=== PATIENT | male | born 2000 | race Caucasian/White ===

== ENCOUNTER 2022-01-22 18:30 | Observation (INO) ==
--- NOTE | 2022-01-22 18:38 | Emergency Department Note ---
Impression & Plan Pneumomediastinum, Chest pain ED Provider Note NAME: INEZ BARTON AGE: 21 SEX: M : 2000 ARRIVES VIA: Ambulance INFORMANT: Patient, ED PROVIDER(S): Lloyd Gudino MD Chief Complaint: Shortness of breath HPI: Patient presents due to concern for shortness of breath which occurred 2 days prior. Patient states that he was at the [employer] a basketball game and had been screaming during most of the basketball game and since then he was having some shortness of breath primarily with taking a big deep breath. Patient denies any nausea vomiting recent alcohol tobacco or drug use. The patient states he does drink alcohol occasionally but not in the last 2 days. Patient denies any coughing or sneezing fits. The patient denies any known medical history. The patient was diagnosed with mono 4 weeks ago and had been on a course of amoxicillin. Patient is still taking the amoxicillin. The patient has been taking ibuprofen and Tylenol which mildly improved his symptoms. The patient denies abdominal pain nausea vomiting. [facility] was noted to have some crepitus and was referred here for further evaluation treatment. Patient is a [employer] student. No recent travel and the patient denies any leg or calf pain. No history of DVT or PE no recent known sick contacts ROS: See HPI for pertinent positives and negatives. A total of 10 systems were reviewed and otherwise negative. Past medical history: See below Surgical history: See below Social history: See below Physical Exam: GENERAL: NAD, wearing a mask, non-toxic. Hoarse voice. EYE EXAM: Normal conjunctiva. PERRL, no anisocoria and EOM's grossly intact w/o pain. NECK: Supple, no nuchal rigidity, no adenopathy, non-tender. No signs of meningismus. FROM of the neck with good chin to chest and neck extension. No stridor. LUNGS: Clear to auscultation. Normal chest wall mechanics. HEART: NSR, no MRG. ABDOMEN: Abdomen soft, non-tender, normo-active bowel sounds, no masses, no rebound or guarding. BACK: No CVA TTP. SKIN: Crepitus over the bilateral chest bilateral neck and right-sided head. UPPER EXTREMITIES: Upper extremities are grossly normal. LOWER EXTREMITIES: Grossly normal, no edema. Negative Homans' sign bilaterally NEURO EXAM: A&O x3, cranial nerves II-XII grossly intact, normal speech, moves all 4 extremities. Differential diagnoses: Reactive airway disease, pneumonia, pneumothorax, COPD, CHF, infections, cardiac ischemia, pulmonary embolism, musculoskeletal, gastrointestinal, as well as other pathologies. Course: Patient was seen and evaluated the bedside. Full history physical exam was performed. Imaging Studies: See Below Cardiac monitoring: An order was placed for continuous cardiac monitoring. The monitor shows a rate of 67 with sinus rhythm. MDM: Patient was seen due to concern for shortness of breath as well as crepitus. The patient did have blood work completed was given IV fluids made n.p.o. COVID swab obtained. CT of the chest obtained along with CT soft tissue neck and CT head. Patient's blood work shows a normal white count with virtually normal hemoglobin at 13.9. The patient's platelet count is unremarkable with normal kidney function. Troponin is not elevated. COVID-negative. The patient's chest x-ray does show pneumomediastinum. There is also subcutaneous emphysema. No obvious pneumothorax. Patient's head CT shows subcutaneous emphysema. Patient's soft tissue neck CT similarly shows subcutaneous emphysema as well as pneumomediastinum. On the patient's CTA of the chest no evidence of PE but there is extensive pneumomediastinum. Patient is otherwise well-appearing at the bedside. I did speak with on-call pulmonology Dr. Meier who recommended chest x-ray as needed and in 1 week after discharge for resolution and recommended antitussives. He is agreeable that the patient would benefit from observation at this time. Past Med/Surg History Medical History (Updated 01/23/22 @ 00:21 by Lloyd Gudino MD) No pertinent past medical history Surgical History (Updated 01/23/22 @ 00:20 by Lloyd Gudino MD) No pertinent past surgical history Social History (Updated 01/23/22 @ 00:20 by Lloyd Gudino MD) Smoking Status: Never smoker Hx Alcohol Use: Yes Hx Substance Use: No current occupational status: student Feels Safe at Home: Yes Allergies Allergies Allergy/AdvReac Type Severity Reaction Status Date / Time No Known Allergies Allergy Verified 01/22/22 20:50 Home Meds Home Medications Medication Instructions Recorded Confirmed amoxicillin 500 mg tablet 0 mg PO BID 01/22/22 01/22/22 Results & Data (ED) Vital Signs Vital Signs - 24 hr 01/22/22 18:43 01/22/22 18:51 01/22/22 18:40 Pulse Rate 63 62 61 Pulse Rate [Finger] Pulse Rate from SpO2 Sensor 60 Pulse Rhythm Regular Regular Pulse Rhythm [Finger] Pulse Strength Normal Pulse Strength [Finger] Respiratory Rate 19 19 15 Respiratory Effort / Characteristics Non-Labored Respiratory Depth Shallow Respiratory Pattern Regular Blood Pressure 147/86 H Blood Pressure [Left Arm] Blood Pressure Mean 106 Blood Pressure Mean [Left Arm] Pulse Oximetry 98 98 98 Oxygen Delivery Method Room Air Room Air Sepsis Recent Fever Within 48 Hours No Sepsis New/Unexplained Change in Mental Status No Sepsis Action Taken by Nursing No Action Required 01/22/22 18:50 01/22/22 19:00 01/22/22 19:10 Pulse Rate 56 L 59 L 52 L Pulse Rate [Finger] Pulse Rate from SpO2 Sensor 57 L 61 53 L Pulse Rhythm Pulse Rhythm [Finger] Pulse Strength Pulse Strength [Finger] Respiratory Rate 21 17 20 Respiratory Effort / Characteristics Respiratory Depth Respiratory Pattern Blood Pressure Blood Pressure [Left Arm] Blood Pressure Mean Blood Pressure Mean [Left Arm] Pulse Oximetry 99 99 99 Oxygen Delivery Method Sepsis Recent Fever Within 48 Hours Sepsis New/Unexplained Change in Mental Status Sepsis Action Taken by Nursing 01/22/22 19:20 01/22/22 19:30 01/22/22 19:40 Pulse Rate 57 L 58 L 58 L Pulse Rate [Finger] Pulse Rate from SpO2 Sensor 56 L 56 L 52 L Pulse Rhythm Pulse Rhythm [Finger] Pulse Strength Pulse Strength [Finger] Respiratory Rate 20 12 22 Respiratory Effort / Characteristics Respiratory Depth Respiratory Pattern Blood Pressure Blood Pressure [Left Arm] Blood Pressure Mean Blood Pressure Mean [Left Arm] Pulse Oximetry 96 100 95 Oxygen Delivery Method Sepsis Recent Fever Within 48 Hours Sepsis New/Unexplained Change in Mental Status Sepsis Action Taken by Nursing 01/22/22 19:50 01/22/22 20:00 01/22/22 21:20 Pulse Rate 55 L 67 63 Pulse Rate [Finger] Pulse Rate from SpO2 Sensor 54 L 51 L 58 L Pulse Rhythm Pulse Rhythm [Finger] Pulse Strength Pulse Strength [Finger] Respiratory Rate 18 17 18 Respiratory Effort / Characteristics Respiratory Depth Respiratory Pattern Blood Pressure Blood Pressure [Left Arm] Blood Pressure Mean Blood Pressure Mean [Left Arm] Pulse Oximetry 99 96 100 Oxygen Delivery Method Sepsis Recent Fever Within 48 Hours Sepsis New/Unexplained Change in Mental Status Sepsis Action Taken by Nursing 01/22/22 21:30 01/22/22 19:50 01/22/22 19:50 Pulse Rate 58 L Pulse Rate [Finger] Pulse Rate from SpO2 Sensor 55 L Pulse Rhythm Pulse Rhythm [Finger] Pulse Strength Pulse Strength [Finger] Respiratory Rate 20 Respiratory Effort / Characteristics Non-Labored Respiratory Depth Shallow Respiratory Pattern Regular Blood Pressure Blood Pressure [Left Arm] Blood Pressure Mean Blood Pressure Mean [Left Arm] Pulse Oximetry 98 98 Oxygen Delivery Method Room Air Room Air Sepsis Recent Fever Within 48 Hours Sepsis New/Unexplained Change in Mental Status Sepsis Action Taken by Nursing 01/22/22 19:50 01/22/22 21:45 01/22/22 22:00 Pulse Rate 52 L 56 L Pulse Rate [Finger] 68 Pulse Rate from SpO2 Sensor 52 L 54 L Pulse Rhythm Pulse Rhythm [Finger] Regular Pulse Strength Pulse Strength [Finger] Normal Respiratory Rate 18 19 18 Respiratory Effort / Characteristics Respiratory Depth Respiratory Pattern Blood Pressure Blood Pressure [Left Arm] 147/86 H Blood Pressure Mean Blood Pressure Mean [Left Arm] 106 Pulse Oximetry 98 99 98 Oxygen Delivery Method Room Air Sepsis Recent Fever Within 48 Hours Sepsis New/Unexplained Change in Mental Status Sepsis Action Taken by Nursing 01/22/22 22:15 Pulse Rate 55 L Pulse Rate [Finger] Pulse Rate from SpO2 Sensor 55 L Pulse Rhythm Pulse Rhythm [Finger] Pulse Strength Pulse Strength [Finger] Respiratory Rate 19 Respiratory Effort / Characteristics Respiratory Depth Respiratory Pattern Blood Pressure Blood Pressure [Left Arm] Blood Pressure Mean Blood Pressure Mean [Left Arm] Pulse Oximetry 98 Oxygen Delivery Method Sepsis Recent Fever Within 48 Hours Sepsis New/Unexplained Change in Mental Status Sepsis Action Taken by Alf Medications Current Medication List: was personally reviewed by me Laboratory Data Attestation: I reviewed the patient's lab results. Result diagrams: 01/22/22 18:49 01/22/22 18:49 Lab Results 01/22/22 01/22/22 01/22/22 Range/Units 18:49 18:49 19:06 WBC 10.62 (4.8-10.8) K/ul RBC 4.82 (4.63-6.08) M/uL Hgb 13.9 L (14.0-18.0) g/dl Hct 40.7 (40.1-51.0) % MCV 84.4 (80.0-100.0) fL MCH 28.8 (25.0-34.0) pg MCHC 34.2 (32.0-36.0) g/dL RDW Std Deviation 39.4 (36.4-46.3) fL RDW Coeff of Latia 12.9 (11.5-14.5) % Plt Count 320 (130-400) K/uL MPV 8.8 L (9.4-12.4) fL Immature Gran % (Auto) 2.4 % Neut % (Auto) 59.9 % Lymph % (Auto) 29.8 % Randolph % (Auto) 5.6 % Eos % (Auto) 1.8 % Baso % (Auto) 0.5 % Neut # (Auto) 6.35 (1.4-6.5) K/uL Lymph # (Auto) 3.17 (1.2-3.4) K/uL Randolph # (Auto) 0.60 (0.24-0.82) K/uL Eos # (Auto) 0.19 (0-0.50) K/uL Baso # (Auto) 0.05 (0-0.2) K/uL Immature Gran # (Auto) 0.26 H (0.00-0.02) K/uL Sodium 139 (136-145) mmol/L Potassium 4.0 (3.5-5.1) mmol/L Chloride 103 (98-107) mmol/L Carbon Dioxide 30 (21-32) mmol/L Anion Gap 6 (3-11) BUN 15 (6-23) mg/dl Creatinine 1.06 (0.6-1.4) mg/dl Est Cr Clr Drug Dosing 118.6 ml/min Est GFR ( Amer) 117.3 ml/min Est GFR (Non-Af Amer) 101.2 ml/min BUN/Creatinine Ratio 14.2 (10-20) Glucose 89 (70-99(Fasting)) mg/dl Calcium 9.8 (8.5-10.1) mg/dl Total Bilirubin 0.5 (0.2-1.0) mg/dl AST 20 (13-39) U/L ALT 27 (7-52) U/L Alkaline Phosphatase 48 (34-104) U/L Troponin I High Sens 9.4 (0-20) pg/ml Total Protein 7.7 (6.0-8.3) gm/dl Albumin 4.6 (3.4-5.0) gm/dl Globulin 3.1 (2.5-4.0) gm/dl Albumin/Globulin Ratio 1.5 (0.9-2) Lipase 12 (11-82) U/L SARS-CoV-2, RNA, NAAT NEGATIVE (NEGATIVE) Administered Medications Discontinued Medications Sodium Chloride (Nss 1000ml) 1,000 mls @ 999 mls/hr IV .Q1H1M STA Stop: 01/22/22 19:51 Last Infusion: 01/22/22 19:55 Dose: 0 mls/hr Documented By: Admin: 01/22/22 19:02 Dose: 999 mls/hr Documented By: SHAHID Ioversol (Optiray 320 500ml) 118 ml IV ONCE ONE Stop: 01/22/22 20:56 Last Admin: 01/22/22 20:55 Dose: 118 ml Documented By: POLA Imaging Data Radiologist's Impression: Chest CTA 01/22/22 18:51 CT ANGIOGRAM OF THE CHEST CLINICAL HISTORY: Crepitus in the chest. Atypical chest pain. COMPARISON STUDY: Chest x-ray performed the same day at 01/22/2022. TECHNIQUE: Following the IV administration of 118 cc of Optiray 320, CT angiogram of the chest was performed from the upper abdomen to the thoracic inlet utilizing the pulmonary embolus protocol. Images are reviewed in the axial, sagittal, and coronal planes. 3-D MIPS images are created and assessed. IV contrast was administered without complication. A dose lowering technique was utilized adhering to the principles of ALARA. CT DOSE: 1434.82 mGy.cm FINDINGS: Thyroid: Imaged portions of the thyroid gland are normal in size and attenuation. Thoracic aorta: The thoracic aorta is normal in caliber and demonstrates standard 3-vessel arch anatomy. No dissection is seen. Pulmonary vasculature: The pulmonary trunk is normal in caliber. There are no filling defects identified in main, lobar, or segmental pulmonary branches to s uggest pulmonary embolus. Heart: The heart is normal in size and without pericardial effusion. Lungs and pleural spaces: There is no airspace consolidation, pleural effusion, or pneumothorax. The trachea and central airways are clear. Mediastinum: There is extensive pneumomediastinum. Deep soft tissue gas dissects superiorly into the neck. There is no mediastinal lymphadenopathy. Shelley: Clear. Axillae: There is no axillary lymphadenopathy. Upper abdomen: The spleen is mildly enlarged. Partially visualized upper abdominal viscera is otherwise within normal limits. Skeletal structures: No lytic or blastic bony lesions are seen. Soft tissues: Subjacent emphysema is seen in the lower neck bilaterally and extending throughout the right chest wall. This extends into the right upper quadrant abdominal wall. IMPRESSION: 1. There is no evidence of pulmonary embolus in the main, lobar, or segmental pulmonary arteries. 2. There is no airspace consolidation, pleural effusion, or pneumothorax. 3. There is extensive pneumomediastinum which extends into the deep soft tissues of the neck. This is of indeterminate etiology. 4. There is also significant subcutaneous emphysema. ACT 112: Negative or not required by law. Electronically signed by: Darren Hernandez M.D. 01/22/2022 9:43 PM Chest X-Ray 01/22/22 18:51 SINGLE VIEW CHEST CLINICAL HISTORY: Dyspnea. Crepitus. FINDINGS: 2 AP, portable, upright chest radiographs are obtained. No prior studies are available for comparison at the time of dictation. The cardiomediastinal silhouette is unremarkable. Pneumomediastinum is noted. No airspace consolidation or pleural effusion is identified. No pneumothorax is clearly identified. The bony thorax is grossly intact. Subcutaneous emphysema is seen in the lower neck bilaterally and along the right chest wall. IMPRESSION: 1. There is no airspace consolidation or pleural effusion. 2. Pneumomediastinum. 3. Subcutaneous emphysema is seen in the lower neck and along the right lateral chest wall. 4. No pneumothorax is clearly identified. This is difficult to assess due to overlying subcutaneous emphysema. ACT 112: Negative or not required by law. Electronically signed by: Darren Hernandez M.D. 01/22/2022 7:[address] 01/22/22 18:51 CT SCAN OF THE BRAIN WITHOUT IV CONTRAST CLINICAL HISTORY: Crepitus of the right head/scalp. COMPARISON STUDY: No priors. TECHNIQUE: Unenhanced axial CT scan of the brain is performed from the vertex to the skull base. A dose lowering technique was utilized adhering to the principles of ALARA. FINDINGS: Brain parenchyma: The brain parenchyma is normal in appearance. There is no hemorrhage, mass effect, or evidence of acute territorial ischemia by CT criteria. Echols-white matter differentiation is preserved. No extra-axial fluid collection is seen. There is no pneumocephalus. Ventricles, sulci, cisterns: Normal in configuration. Intracranial vasculature: The visualized intracranial vasculature at the skull base is normal in appearance. Calvarium: Unremarkable. Soft tissues: Simultaneous emphysema is noted in the right scalp in the right occiput. Deep soft tissue gas is dissecting within the upper pharynx in the right assistant toddler teacher space. Sinuses and mastoids: The visualized paranasal sinuses are clear. The mastoid air cells are well pneumatized. Orbits: The bony orbits are grossly intact. IMPRESSION: 1. No acute intracranial abnormality. 2. There is subcutaneous emphysema involving the right scalp. 3. Deep soft tissue gas is seen dissecting within the upper pharynx and in the right assistant toddler teacher space. ACT 112: Negative or not required by law. Electronically signed by: Darren Hernandez M.D. 01/22/2022 9:[address] PM [address] Tissue Neck [address] 01/22/22 18:51 CT SCAN OF THE NECK WITH IV CONTRAST CLINICAL HISTORY: Crepitus in the neck and chest. COMPARISON STUDY: No priors. TECHNIQUE: Following the IV administration of 118 cc of Optiray 320, CT scan of the soft tissues of the neck was performed from the skull base to the upper chest. Images are reviewed in the axial, sagittal, and coronal planes. IV contrast was administered without complication. A dose lowering technique was utilized adhering to the principles of ALARA. FINDINGS: Soft tissues: There is extensive subcutaneous emphysema in the neck and upper chest, right greater than left. Pharynx: Deep soft tissue gas is seen dissecting throughout the pharynx and into the right assistant toddler teacher space. The nasopharynx, oropharynx, and laryngeal pharynx are otherwise normal as visualized. The pharyngeal airway is widely patent. There is no evidence of mass lesion. The vocal cords are symmetric. The parapharyngeal fat is well maintained. The prevertebral/retropharyngeal soft tissues are within normal limits. The epiglottis is normal. Lymphadenopathy: No cervical lymphadenopathy is seen Thyroid: Normal in size and attenuation. Salivary glands: The parotid and submandibular glands are within normal limits. Brain parenchyma: The visualized brain parenchyma at the skull base is normal in appearance. Vascular structures: The carotid arteries and jugular veins are widely patent bilaterally. Skeletal structures: Imaged portions of the calvarium at the skull base are within normal limits. The cervical spine appears intact. Sinuses and mastoids: The paranasal sinuses are clear. The mastoid air cells are well pneumatized. Orbits: The bony orbits are intact. Orbital contents are normal as visualized. Upper chest: Pneumomediastinum is noted. The visualized upper lobe lung parenchyma appears clear. No pneumothorax is seen. IMPRESSION: 1. There is extensive subcutaneous emphysema in the lower neck and upper chest as above. 2. There is pneumomediastinum, with deep soft tissue gas dissecting throughout the pharynx and into the right assistant toddler teacher space. 3. The pharyngeal soft tissues are otherwise normal as imaged. ACT 112: Negative or not required by law. Electronically signed by: Darren Hernandez M.D. 01/22/2022 9:33 PM Discharge Plan Visit Data Chief Complaint: Shortness of Breath/Dyspnea Stated Complaint: SOB ED Provider: Lloyd Gudino Discharge Problem: Pneumomediastinum, Chest pain Patient Disposition: Admitted As Inpatient Discharge Instructions Interventions: ED Discharge Assessment Last Done: 01/22/22 23:20
[2022-01-22] MEDS ORDERED: SODIUM CHLORIDE 0.9% 1000ML 1,000 ML IV STA (18:51)
[2022-01-22 18:58] LABS: Basophils # (auto) 0.05 K/uL (0-0.2); Basophils % (auto) 0.5 %; Eosinophils # (auto) 0.19 K/uL (0-0.50); Eosinophils % (auto) 1.8 %; Hematocrit (blood only) 40.7 % (40.1-51.0); Hemoglobin 13.9 g/dl (14.0-18.0); Immature Granulocytes # (auto) 0.26 K/uL (0.00-0.02); Immature Granulocytes % (auto) 2.4 %; Lymphocytes # (auto) 3.17 K/uL (1.2-3.4); Lymphocytes % (auto) 29.8 %; Mean Corpuscular Hemoglobin 28.8 pg (25.0-34.0); Mean Corpuscular Hgb Conc 34.2 g/dL (32.0-36.0); Mean Corpuscular Volume 84.4 fL (80.0-100.0); Mean Platelet Volume 8.8 fL (9.4-12.4); Monocytes % (auto) 5.6 %; Neutrophils # (auto) 6.35 K/uL (1.4-6.5); Neutrophils % (auto) 59.9 %; Platelet Count 320 K/uL (130-400); RDW Coefficient of Variation 12.9 % (11.5-14.5); RDW Standard Deviation 39.4 fL (36.4-46.3); Red Blood Count 4.82 M/uL (4.63-6.08); White Blood Count 10.62 K/ul (4.8-10.8)
[2022-01-22 19:47] LABS: Troponin I High Sensitivity 9.4 pg/ml (0-20)
--- NOTE | 2022-01-22 19:57 | XRay Report ---
SINGLE VIEW CHEST CLINICAL HISTORY: Dyspnea. Crepitus. FINDINGS: 2 AP, portable, upright chest radiographs are obtained. No prior studies are available for comparison at the time of dictation. The cardiomediastinal silhouette is unremarkable. Pneumomediasti num is noted. No airspace consolidation or pleural effusion is identified. No pneumothorax is clearly identified. The bony thorax is grossly intact. Subcutaneous emphysema is seen in the lower neck bila terally and along the right chest wall. IMPRESSION: 1. There is no airspace consolidation or pleural effusion. 2. Pneumomediastinum. 3. Subcutaneous emphysema is seen in the lower neck and along the right lateral chest wall. 4. No pneumothorax is clearly identified. This is difficult to assess due to overlying subcutaneous e mphysema. ACT 112: Negative or not required by law. Electronically signed by: Darren Hernandez M.D. 01/22/2022 7:55 PM
[2022-01-22 19:58] LABS: Albumin Globulin Ratio 1.5 (0.9-2); Albumin Level 4.6 gm/dl (3.4-5.0); BUN Creatinine Ratio 14.2 (10-20); Bilirubin,Total 0.5 mg/dl (0.2-1.0); Calcium 9.8 mg/dl (8.5-10.1); Creatinine Clr Calc Pharmacy 118.6 ml/min; Est GFR (African American) 117.3 ml/min; Est GFR (Non-African American) 101.2 ml/min; Globulin 3.1 gm/dl (2.5-4.0); Total Protein 7.7 gm/dl (6.0-8.3)
[2022-01-22] MEDS ORDERED: OPTIRAY 320 500ml IV ONE (20:55)
--- NOTE | 2022-01-22 21:16 | CT Scan Report ---
CT SCAN OF THE BRAIN WITHOUT IV CONTRAST CLINICAL HISTORY: Crepitus of the right head/scalp. COMPARISON STUDY: No priors. TECHNIQUE: Unenhanced axial CT scan of the brain is performed from the vertex to the skull base. A d ose lowering technique was utilized adhering to the principles of ALARA. FINDINGS: Brain parenchyma: The brain parenchyma is normal in appearance. There is no hemorrhage, mass effect, or evidence of acute territorial ischemia by CT criteria. Echols-white matter differentiation is preser ana luisa. No extra-axial fluid collection is seen. There is no pneumocephalus. Ventricles, sulci, cisterns: Normal in configuration. Intracranial vasculature: The visualized intracranial vasculature at the skull base is normal in appe arance. Calvarium: Unremarkable. Soft tissues: Simultaneous emphysema is noted in the right scalp in the right occiput. Deep soft tiss ue gas is dissecting within the upper pharynx in the right paint laboratory technician space. Sinuses and mastoids: The visualized paranasal sinuses are clear. The mastoid air cells are well pneu matized. Orbits: The bony orbits are grossly intact. IMPRESSION: 1. No acute intracranial abnormality. 2. There is subcutaneous emphysema involving the right scalp. 3. Deep soft tissue gas is seen dissecting within the upper pharynx and in the right paint laboratory technician space . ACT 112: Negative or not required by law. Electronically signed by: Darren Hernandez M.D. 01/22/2022 9:13 PM
--- NOTE | 2022-01-22 21:35 | CT Scan Report ---
CT SCAN OF THE NECK WITH IV CONTRAST CLINICAL HISTORY: Crepitus in the neck and chest. COMPARISON STUDY: No priors. TECHNIQUE: Following the IV administration of 118 cc of Optiray 320, CT scan of the soft tissues of t he neck was performed from the skull base to the upper chest. Images are reviewed in the axial, sagit julian, and coronal planes. IV contrast was administered without complication. A dose lowering techniq ue was utilized adhering to the principles of ALARA. FINDINGS: Soft tissues: There is extensive subcutaneous emphysema in the neck and upper chest, right greater th an left. Pharynx: Deep soft tissue gas is seen dissecting throughout the pharynx and into the right box stacker space. The nasopharynx, oropharynx, and laryngeal pharynx are otherwise normal as visualized. The ph aryngeal airway is widely patent. There is no evidence of mass lesion. The vocal cords are symmetric. The parapharyngeal fat is well maintained. The prevertebral/retropharyngeal soft tissues are within normal limits. The epiglottis is normal. Lymphadenopathy: No cervical lymphadenopathy is seen Thyroid: Normal in size and attenuation. Salivary glands: The parotid and submandibular glands are within normal limits. Brain parenchyma: The visualized brain parenchyma at the skull base is normal in appearance. Vascular structures: The carotid arteries and jugular veins are widely patent bilaterally. Skeletal structures: Imaged portions of the calvarium at the skull base are within normal limits. The cervical spine appears intact. Sinuses and mastoids: The paranasal sinuses are clear. The mastoid air cells are well pneumatized. Orbits: The bony orbits are intact. Orbital contents are normal as visualized. Upper chest: Pneumomediastinum is noted. The visualized upper lobe lung parenchyma appears clear. No pneumothorax is seen. IMPRESSION: 1. There is extensive subcutaneous emphysema in the lower neck and upper chest as above. 2. There is pneumomediastinum, with deep soft tissue gas dissecting throughout the pharynx and into t he right box stacker space. 3. The pharyngeal soft tissues are otherwise normal as imaged. ACT 112: Negative or not required by law. Electronically signed by: Darren Hernandez M.D. 01/22/2022 9:33 PM
--- NOTE | 2022-01-22 21:45 | CT Scan Report ---
CT ANGIOGRAM OF THE CHEST CLINICAL HISTORY: Crepitus in the chest. Atypical chest pain. COMPARISON STUDY: Chest x-ray performed the same day at 01/22/2022. TECHNIQUE: Following the IV administration of 118 cc of Optiray 320, CT angiogram of the chest was pe rformed from the upper abdomen to the thoracic inlet utilizing the pulmonary embolus protocol. Images are reviewed in the axial, sagittal, and coronal planes. 3-D MIPS images are created and assessed. I V contrast was administered without complication. A dose lowering technique was utilized adhering to the principles of ALARA. CT DOSE: 1434.82 mGy.cm FINDINGS: Thyroid: Imaged portions of the thyroid gland are normal in size and attenuation. Thoracic aorta: The thoracic aorta is normal in caliber and demonstrates standard 3-vessel arch anato my. No dissection is seen. Pulmonary vasculature: The pulmonary trunk is normal in caliber. There are no filling defects identif ied in main, lobar, or segmental pulmonary branches to suggest pulmonary embolus. Heart: The heart is normal in size and without pericardial effusion. Lungs and pleural spaces: There is no airspace consolidation, pleural effusion, or pneumothorax. The trachea and central airways are clear. Mediastinum: There is extensive pneumomediastinum. Deep soft tissue gas dissects superiorly into the neck. There is no mediastinal lymphadenopathy. Shelley: Clear. Axillae: There is no axillary lymphadenopathy. Upper abdomen: The spleen is mildly enlarged. Partially visualized upper abdominal viscera is otherwi se within normal limits. Skeletal structures: No lytic or blastic bony lesions are seen. Soft tissues: Subjacent emphysema is seen in the lower neck bilaterally and extending throughout the right chest wall. This extends into the right upper quadrant abdominal wall. IMPRESSION: 1. There is no evidence of pulmonary embolus in the main, lobar, or segmental pulmonary arteries. 2. There is no airspace consolidation, pleural effusion, or pneumothorax. 3. There is extensive pneumomediastinum which extends into the deep soft tissues of the neck. This is of indeterminate etiology. 4. There is also significant subcutaneous emphysema. ACT 112: Negative or not required by law. Electronically signed by: Darren Hernandez M.D. 01/22/2022 9:43 PM
--- NOTE | 2022-01-22 22:42 | History & Physical Report ---
Date of Service January 22, 2022 Assessment & Plan (1) Pneumomediastinum: Plan: This is a 21-year-old male with no reported past medical history who presented to [facility] for evaluation of subcutaneous emphysema discovered at [id number], subsequently found to have significant pneumomediastinum and subcutaneous emphysema surrounding the neck/chest wall and extending up into the pharynx/scalp. Pneumomediastinum / Subcutaneous Emphysema - Patient reporting 2 days of "neck swelling" w/ associated crepitus and difficulty taking a deep breath following recent bout of mono-related tonsillitis and yelling/shouting during a basketball game approx. 3 days WEB PRESSMAN - Hemodynamically stable. No evidence of cardiac or pulmonary dysfunction as a function of the free air. No e/o infection. - CT Neck/Chest: -- There is extensive subcutaneous emphysema in the lower neck and upper chest as above. -- There is pneumomediastinum, with deep soft tissue gas dissecting throughout the pharynx and into the right cdl company driver space. -- There is extensive pneumomediastinum which extends into the deep soft tissues of the neck. This is of indeterminate etiology. - Suspected etiology: possibly gaseous translocation following pharyngitis in the setting of yelling/shouting during game? No radiologic evidence or history of lung disease, no h/o barotrauma, no chest wall injury, no PNX - ER provider spoke with on-call industrial equipment wirer: Monitor. Imaging as needed, repeat CXR in 1 week, start antitussives - Monitor on telemetry while here - Start Tessalon Perles t.i.d. x 5 days - Introduced activity modification, will need to be revisited prior to discharge -- e.g., avoiding Valsalva-related activities, heavy lifting, air travel, etc. for a few weeks - Will require PCP in the area for frequent follow-ups Code: Full Diet: Regular PPX: Low risk, ambulate ad shilo Dispo: MS/T History of Present Illness Primary Care Provider: [facility] This is a 21-year-old male with no reported past medical history who presented to [facility] for evaluation of crepitus. Patient said that he was in his normal state of health up until approximately 2 days prior to admission. He says he was watching basketball game at home with his friends, which involved a lot of shouting/yelling as part of the game excitement. Somewhere around that time, he did say that taking a big deep breath was more difficult. He woke up the following morning (day prior to admission) and noticed that his neck was more swollen. He continued to have the deep breaths discomfort, but otherwise no significant shortness of breath. He was seen at [facility] and found to have crepitus on exam, and subsequently referred to the ER for further evaluation. Patient does say that several weeks ago, he was treated for mono and possibly strep throat. He said that the majority of his symptoms at that time involved pharyngitis/sore throat. However, he also endorsed a mild cough around that time too. However, this has been getting much better. He has not been having coughing over the last several days. He denies any nausea or vomiting. He denies any history of lung disease. Denies any recent air travel or scuba diving. He reports that his neck fullness has improved over the last day. Denies exertional symptoms. No presyncope. No leg swelling. No vaping or tobacco use. No recreational drug use. On arrival, patient was found to be mildly hypertensive to 147/86 with otherwise normal vital signs. Admission labs demonstrated very slight normocytic anemia 13.9 with otherwise normal chemistries. COVID-negative. CTA of the chest demonstrated extensive pneumomediastinum extending into the deep soft tissues of the neck. There was no evidence of PE, pneumothorax. His chest x-ray demonstrated subcutaneous emphysema extending into the lower neck, right lateral chest wall; his head CT demonstrated extension of the subcutaneous emphysema into the scalp.CT of the neck demonstrated "pneumomediastinum, with deep soft tissue gas dissecting through the pharynx and into the right cdl company driver space." ED provider spoke with on-call pulmonology service, who recommended antitussives, repeating CXR as needed while here, and performing a repeat CXR in 1 week. --- This documentation was created utilizing dictation software. As such, syntax, grammatical, and word-choice errors may be present. Notes are screened prior to submission in an attempt to reduce these errors. If there are any questions or concerns, please contact the author directly for clarification. Allergies Allergy/AdvReac Type Severity Reaction Status Date / Time No Known Allergies Allergy Verified 01/22/22 20:50 Home Medications Medication Instructions Recorded Confirmed Type amoxicillin 500 mg tablet 0 mg PO BID 01/22/22 01/22/22 History benzonatate 100 mg capsule 100 mg PO TID 4 days #12 caps 01/23/22 Rx Past Med/Surg History Medical History (Updated 01/23/22 @ 00:21 by Lloyd Gudino MD) No pertinent past medical history Surgical History (Updated 01/23/22 @ 00:20 by Lloyd Gudino MD) No pertinent past surgical history Social History (Updated 01/23/22 @ 00:20 by Lloyd Gudino MD) Smoking Status: Never smoker Do You Dip or Chew Tobacco: No; Hx Alcohol Use: Yes Alcohol type: beer Hx Substance Use: No Preferred Language: Tajik Communication Ability: Effective Dental Technician Instructor Required: No Beliefs That Will Affect Care: None Current Living Situation: Other Current Living Situation Comment: [employer] current occupational status: student Other Information That Helps Us Care for You: No Feels Safe at Home: Yes Safety Concerns: Feels Safe At This Time Assistive Devices: None Review of Systems Review of Systems: as per HPI Physical Exam Physical Exam: General: 21-year old male who is alert, oriented, and appears in no acute distress. HEENT: NCAT. - Eyes - Sclera are white, anicteric, and without injection. - Mouth - MMM, no tonsillitis or posterior pharyngeal findings - Neck - supple, no appreciable JVD Cardiac: Normal rate and regular rhythm; S1 and S2 present with no murmurs, rubs, or gallops. Pulmonary: Good respiratory effort with symmetric expansion of the chest. No use of accessory muscles. Lungs were clear to auscultation bilaterally with no crackles or wheezes. Significant crepitus appreciated with inhalation. Abdominal: Normoactive bowel sounds. Abdomen was soft, nondistended, and non- tender to palpation. No splenomegaly. Extremities: Upper and lower extremities are warm and well perfused. No peripheral edema in the lower extremities bilaterally Dermatologic: Significant subcutaneous emphysema-related crepitus appreciated along the base of the neck bilaterally. Psych: Well-developed, well-nourished, appropriately dressed for occasion. Behavior is cooperative and appropriate. Affect is WNL. Insight is appropriate. Results & Data Results & Data (MN) Vital Signs (Past 12 Hours) Vital Signs Pulse Pulse Resp BP BP Pulse Ox O2 Del Method 01/22/22 22:15 55 L 19 98 01/22/22 22:00 56 L 18 98 01/22/22 21:45 52 L 19 99 01/22/22 19:50 68 18 147/86 H 98 Room Air 01/22/22 19:50 98 Room Air 01/22/22 19:50 Room Air 01/22/22 21:30 58 L 20 98 01/22/22 21:20 63 18 100 01/22/22 20:00 67 17 96 01/22/22 19:50 55 L 18 99 01/22/22 19:40 58 L 22 95 01/22/22 19:30 58 L 12 100 01/22/22 19:20 57 L 20 96 01/22/22 19:10 52 L 20 99 01/22/22 19:00 59 L 17 99 01/22/22 18:50 56 L 21 99 01/22/22 18:40 61 15 98 01/22/22 18:51 62 19 98 Room Air 01/22/22 18:43 63 19 147/86 H 98 Room Air Supervising Physician Co-Signing Physician Notes Patient seen and examined, chart reviewed, case discussed with Dr. Velazquez and I agree with the assessment and plan as above. In brief, patient is a 21yo male presenting with pneumomediastinum. Patient was screaming during a basketball game. The next day he had some swelling in his neck and it was difficult to take a deep breath Found with pneumomediastinum, subcutaneous air as described above On exam he is afebrile, HD stable, NAD +crepitus noted over chest wall, right side of scalp No JVD or tracheal deviation Remainder of exam is benign Labs and images reviewed Assessment/Plan - pneumomediastinum, subcutaneous air occurring following prolonged screaming/cheering. He is stable. Will continue to monitor, repeat chest x-ray if patient changes clinically. Repeat chest x-ray in one week recommended. Resident Activity Tracking Resident Involvement: Resident Care Provided Care Provided: [facility]
--- NOTE | 2022-01-23 07:07 | Electrocardiogram Report ---
Test Reason : Blood Pressure : / mmHG Vent. Rate : 060 BPM Atrial Rate : 060 BPM P-R Int : 132 ms QRS Dur : 094 ms QT Int : 384 ms P-R-T Axes : 077 082 064 degrees QTc Int : 384 ms Normal sinus rhythm Normal ECG No previous ECGs available Confirmed by Akhil Gibbons ([id number]) on 01/23/2022 7:07:04 AM Referred By: REFERRED SELF Confirmed By:Boom Gibbons
[2022-01-23] MEDS ORDERED: BENZONATATE 100 MG CAPSULE PO SCH (09:00)
--- NOTE | 2022-01-23 12:03 | Billing Data ---
Date of Service January 22, 2022 Coding Level of Care Code 77657 Initial Inpt Care Lvl 2
--- NOTE | 2022-01-23 12:04 | Discharge Summary ---
Date of Service January 23, 2022 Admission HPI Per Admitting Provider This is a 21-year-old male with no reported past medical history who presented to [facility] for evaluation of crepitus. Patient said that he was in his normal state of health up until approximately 2 days prior to admission. He says he was watching basketball game at home with his friends, which involved a lot of shouting/yelling as part of the game excitement. Somewhere around that time, he did say that taking a big deep breath was more difficult. He woke up the following morning (day prior to admission) and noticed that his neck was more swollen. He continued to have the deep breaths d iscomfort, but otherwise no significant shortness of breath. He was seen at [facility] and found to have crepitus on exam, and subsequently referred to the ER for further evaluation. Patient does say that several weeks ago, he was treated for mono and possibly strep throat. He said that the majority of his symptoms at that time involved pharyngitis/sore throat. However, he also endorsed a mild cough around that time too. However, this has been getting much better. He has not been having coughing over the last several days. He denies any nausea or vomiting. He denies any history of lung disease. Denies any recent air travel or scuba diving. He reports that his neck fullness has improved over the last day. Denies exertional symptoms. No presyncope. No leg swelling. No vaping or tobacco use. No recreational drug use. On arrival, patient was found to be mildly hypertensive to 147/86 with otherwise normal vital signs. Admission labs demonstrated very slight normocytic anemia 13.9 with otherwise normal chemistries. COVID-negative. CTA of the chest demonstrated extensive pneumomediastinum extending into the deep soft tissues of the neck. There was no evidence of PE, pneumothorax. His chest x-ray demonstrated subcutaneous emphysema extending into the lower neck, right lateral chest wall; his head CT demonstrated extension of the subcutaneous emphysema into the scalp.CT of the neck demonstrated "pneumomediastinum, with deep soft tissue gas dissecting through the pharynx and into the right data warehousing manager space." ED provider spoke with on-call pulmonology service, who recommended antitussives, repeating CXR as needed while here, and performing a repeat CXR in 1 week. --- This documentation was created utilizing dictation software. As such, syntax, grammatical, and word-choice errors may be present. Notes are screened prior to submission in an attempt to reduce these errors. If there are any questions or concerns, please contact the author directly for clarification. Principal Diagnosis Pneumomediastinum Discharge Exam Constitutional WD/WN, vitals as above Patient resting comfortably in bed. Eyes PERRL, conjunctivae normal, anicteric sclerae Neck Neck mildly swollen bilaterally, palpable crepitus at the neck down to the suprasternal notch and manubrium. Respiratory normal respiratory effort, lungs clear to auscultation Cardiovascular RRR, no murmur, no edema Gastrointestinal (Abdomen) normal bowel sounds, soft, nontender, no hepatosplenomegaly Psychiatric A+Ox3, euthymic affect Discharge Data Allergies Allergy/AdvReac Type Severity Reaction Status Date / Time No Known Allergies Allergy Verified 01/22/22 20:50 Consultations 01/22/22 22:18 ED Decision to Admit Stat Ordered Studies 01/22/22 18:51 CT angio chest PE protocol Stat IMPRESSION: 1. There is no evidence of pulmonary embolus in the main, lobar, or segmental pulmonary arteries. 2. There is no airspace consolidation, pleural effusion, or pneumothorax. 3. There is extensive pneumomediastinum which extends into the deep soft tissues of the neck. This is of indeterminate etiology. 4. There is also significant subcutaneous emphysema. CT head/brain wo con Stat IMPRESSION: 1. No acute intracranial abnormality. 2. There is subcutaneous emphysema involving the right scalp. 3. Deep soft tissue gas is seen dissecting within the upper pharynx and in the right data warehousing manager space. CT soft tissue neck w con Stat IMPRESSION: 1. There is extensive subcutaneous emphysema in the lower neck and upper chest as above. 2. There is pneumomediastinum, with deep soft tissue gas dissecting throughout the pharynx and into the right data warehousing manager space. 3. The pharyngeal soft tissues are otherwise normal as imaged. Hospital Course (1) Pneumomediastinum: This is a 21-year-old male with no reported past medical history who presented to [facility] for evaluation of subcutaneous emphysema discovered at [facility], subsequently found to have significant pneumomediastinum and subcutaneous emphysema surrounding the neck/chest wall and extending up into the pharynx/scalp. Pneumomediastinum / Subcutaneous Emphysema - Prior throat infection from a few weeks prior to arrival. - CT Neck/Chest: -- There is extensive subcutaneous emphysema in the lower neck and upper chest as above. -- There is pneumomediastinum, with deep soft tissue gas dissecting throughout the pharynx and into the right data warehousing manager space. -- There is extensive pneumomediastinum which extends into the deep soft tissues of the neck. This is of indeterminate etiology. - Hemodynamically stable throughout stay. No evidence of cardiac or pulmonary dysfunction as a function of the free air. No e/o infection. - Suspected etiology: possibly gaseous translocation following pharyngitis in the setting of yelling/shouting during game. No radiologic evidence or history of lung disease, no h/o barotrauma, no chest wall injury, no PNX - ER provider spoke with on-call financial recruiter: Monitor. Imaging as needed, repeat CXR in 1 week, start antitussives. - Started on Tessalon Perles t.i.d. x 5 days - Recommended to patient to hold off on activities that would increase upper chest pressure such as heavy aerobic activity, lifting, coughing, vomiting, Valsalva type maneuvers, etc. - Will require PCP in the area for frequent follow-ups - message sent to [facility] scheduling to contact patient for appointment this coming week. Total Time Total Time Spent Total Time Spent (In Minutes): Please see attending attestation. Discharge Plan Discharge Items Patient Disposition: Home - Self-Care Reason For Visit: PNEUMOMEDIASTINUM Discharge Diagnosis: Pneumomediastinum Activity: Per Instructions section Non-emergency contact: Primary Care Provider Call non-emergency contact if: your symptoms worsen, your pain is worsening and your temperature is above 101 Follow-up/Referrals: [facility] [Primary Care Provider] - Diet: Regular Addtl Attending Provider Instructions: You were seen in our hospital for neck swelling and difficulty taking a deep breath. Physical exam revealed palpable crepitus and subsequent imaging was ordered which demonstrated subcutaneous emphysema (air pockets) in the soft tissue around the neck which would explain the swelling. The case was discussed with our financial recruiter who recommended monitoring overnight for any worsening of symptoms followed by a repeat XR in one week outpatient. You did well overnight and into the morning so at this time we think it is okay for you to be discharged home. Be sure not to do any heavy activity or straining that would increase the amount of pressure put on the neck for 3-4 weeks - this would include working out with lifting or heavy aerobic activity. Please also try to avoid excessive yelling or any vomiting as this will increase the pressure in the neck as well. You will be given a prescription of benzonatate (Tessalon pearls) to take three times a day for the next 4 days. This will be to help suppress a cough that may lead to worsening of the air in your neck. Please follow up with a doctor outpatient within the next week to ensure you get the repeat XR to check for improvement. A message to schedulers was sent to the [facility] to schedule a follow up visit. If you have any worsening of your symptoms please return to the ER. Pending Studies at Discharge: No Stand-Alone Forms: My [employer], Smoking Cessation Medications and DC Order Prescriptions: New benzonatate 100 mg capsule 100 mg PO TID 4 Days Qty: 12 0RF Discontinued amoxicillin 500 mg Tablet 0 mg PO BID Rx Instructions: COURSE ENDS 01/23/22. PT UNSURE OF STRENGTH, UNABLE TO VERIFY DOSE. Discharge Orders: Discharge Order (Routine); Ordered 01/23/22 Ordered By: Matthew Callejas Admission Data Admit Date/Time: 01/22/22 22:45 Attending Provider: Stephanie Duval Admit Provider: Kay Chi Primary Care Provider: [facility] Other Providers: Kay Chi Other Interventions: Discharge Summary Assessment (RN) Last Done: 01/23/22 12:21 Supervising Physician Co-Signing Physician Notes Resident Physician Supervision Note: I independently interviewed and examined the patient and verified the sanchez hist ory and physical, reviewed labs and image studies and agree with resident findings and care plan. Resident Activity Tracking Resident Involvement: Resident Care Provided Care Provided: Adult Hospital Medicine
== END 2022-01-23 12:45 | disposition home or self-care (01) ==
LOC: ED 18:30 → 2W 18:30 → SUATTDRO 22:45 → 2W 23:20
DX: J98.2 Interstitial emphysema